=== PATIENT | male | born 1935 | race Caucasian/White ===

== ENCOUNTER → 2017-01-08 | Outpatient (CLI) | payer MEDICARE ==
[~2017-01-08] MED LIST: CEPHALEXIN500 M1 PO; ELIQUIS5 MG PO; FENOFIBRATE145 M1 PO; FLOMAX0.4 M1 PO; LIPITOR40 MG PO; PRIMATENE MIS IH; PROTONIX PO; TOPROL XL PO; ZESTRIL5 MG PO
--- NOTE | ~2017-01-08 | CR63 ---
[facility] A Service of [facility] RADIOLOGY TEXT RESULTS PATIENT: CHARLOTTE GIRON [id number] : 39 UNIT #: [id number] AGE: [address]: MONICA COLLADO APRN SEX: M ORDER DR: [id number] [facility] [address] [place], [place] [address] [id number] O MR#: [id number] Acc #: [id number] NAME: CHARLOTTE GIRON : 1935 SEX: M STUDY DATE/TIME: 01/08/2017 16:24 UNIT: [facility] ROOM: STUDY DESCRIPTION: CR Chest 2 View Attending Physician: Monica Collado Np Referring Physician: Monica Collado Np Ordering Physician: Monica Collado Np Primary Care Physician: Symone Roldan M.D. MEDICAL IMAGING REPORT This report is preliminary unless electronic signature is present EXAM 2 views chest. DATE OF EXAM 01/08/2017 HISTORY Acute upper respiratory infection, short of breath. 1 week duration. Acute upper respiratory infection. REPORT PA and lateral radiographs of the chest are presented. COMPARISON 06/25/2015 FINDINGS There are degenerative changes in the spine, but no acute appearing bony abnormality. The heart is upper limits of normal in size. Stable. Mildly tortuous descending thoracic aorta. Stable. Lungs moderately well inflated. There is no indication of acute infectious or inflammatory disease, pleural effusion or pneumothorax. No suspicious nodule. Stable mild elevation of the anterior right hemidiaphragm. Dictated by... Uli Elias M.D. THIS IS AN ELECTRONICALLY VERIFIED REPORT Uli Elias M.D. at 01/10/2017 1:54 PM MARCIA/claudy TD: 01/09/2017 17:41 [facility] A Service [facility] RADIOLOGY TEXT RESULTS PATIENT: CHARLOTTE GIRON [facility] [id number] : 39 UNIT #: [id number] AGE: [address]: MONICA COLLADO APRN SEX: M ORDER DR: JOB #: [id number] MEDICAL IMAGING REPORT Page 1 of 1 COPY
== END | disposition home or self-care (01) ==
LOC: CRAD 16:09
DX: J06.9 Acute upper respiratory infection, unspecified (principal); R06.02 Shortness of breath
CPT/HCPCS: 71020